=== PATIENT | female | born 1945 | race Caucasian/White ===

== ENCOUNTER 2023-05-27 14:22 | Outpatient (CLI) | payer MEDICARE, OTHER | END 2023-05-27 14:23 | disposition home or self-care (01) | LOC: CSHRAD 14:22 | PROVIDERS: ATTEND Neurological Surgery | DX: M43.16 Spondylolisthesis, lumbar region (principal); M47.816 Spondylosis without myelopathy or radiculopathy, lumbar region | CPT/HCPCS: 72120 ==

== ENCOUNTER 2023-07-03 12:49 | Outpatient (CLI) | payer MEDICARE, OTHER | END 2023-07-03 12:50 | disposition home or self-care (01) | LOC: CSHCT 12:49 | PROVIDERS: ATTEND Neurological Surgery | DX: M54.50 Low back pain, unspecified (principal); M47.816 Spondylosis without myelopathy or radiculopathy, lumbar region | CPT/HCPCS: 72131 ==